=== PATIENT | male | born 1965 | race African-American/Black ===

== ENCOUNTER 2017-11-04 07:16 | Emergency (ER) | payer SELFPAY ==
[2017-11-04 07:31] VITALS: BMI 23.4
[2017-11-04] MEDS ORDERED: COLCHICINE 0.6 MG TABLET (FP) PO ONE ×2 (08:00→10:24)
[2017-11-04] MEDS ORDERED: COLCHICINE 0.6 MG TABLET (FP) ONE ×3 (08:06→10:42)
--- NOTE | 2017-11-04 08:11 | PDOC ---
History of Present Illness - General Chief Complaint: Pain Stated Complaint: FOOT PAIN Time Seen by Provider: 11/04/17 07:35 - History of Present Illness Initial Comments: 11/04/17 08:02 52 year old male with a pmh of CHF (s/p defibrillator placement), atrial fibrillation on eliquis, gout, HTN, HLD, presents for several hour hx of severe left knee pain that began when he was taking his child to school this morning. He says the pain is located on the posterior aspect of his left knee, that it is 10/10 in severity and is unable to extend his left knee without severe pain. He reports that he initially began feeling slight pain last night, for which he took 1 dose of 10mg Prednisone prescribed to him, which did not alleviate the pain. He also tried tylenol, which did not improve his pain. He denies any fevers or chills, swelling or erythema of the left leg or knee. He has seen a cashier [facility] who diagnosed him with gout around 1 year ago. Since then, he reports having 2 gouty attacks in the affected knee. Denies chest pain, SOB, nausea, vomiting, diarrhea. PCP: Dr. [facility] Floor Representative: Dr. Bill[facility] Allergies: NKDA Smoking: Former as a child Alcohol: none Surgeries: defibrillator placement Past History - Past Medical History Allergies/Adverse Reactions: Allergies Allergy/AdvReac Type Severity Reaction Status Date / Time No Known Allergies Allergy Verified 11/04/17 07:19 Home Medications: Ambulatory Orders Apixaban [Eliquis] 5 mg PO BID 11/04/17 Aspirin [ASA -] 81 mg PO DAILY 11/04/17 Furosemide [Lasix] 40 mg PO DAILY 11/04/17 Lisinopril [Prinivil -] 40 mg PO DAILY 11/04/17 Metoprolol Tartrate 100 mg PO BID 11/04/17 Nifedipine ER [Procardia XL -] 30 mg PO DAILY 11/04/17 Prednisone 30 mg PO DAILY 11/04/17 Prednisone [Deltasone] 20 mg PO DAILY #15 tablet 11/04/17 Simvastatin 40 mg PO HS 11/04/17 Cardiac Disorders: Yes (abnormal heart beat) COPD: No DVT: Yes HTN: Yes Hypercholesterolemia: Yes Other medical history: gout, arithritis - Surgical History Cardiac Surgery: Yes (AICD) - Suicide/Smoking/Psychosocial Hx Smoking History: Never smoked Information on smoking cessation initiated: No Hx Alcohol Use: No Drug/Substance Use Hx: No Substance Use Type: None Review of Systems - Review of Systems Able to Perform ROS?: Yes Constitutional: No: Fever Respiratory: No: Shortness of Breath, Wheezing Cardiac (ROS): No: Chest Pain ABD/GI: No: Diarrhea, Nausea, Vomiting Musculoskeletal: Yes: Gout. No: Joint Swelling *Physical Exam - Vital Signs Last Vital Signs Temp Pulse Resp BP Pulse Ox 98.3 F 100 H 18 153/99 100 11/04/17 07:21 11/04/17 07:21 11/04/17 07:21 11/04/17 07:21 11/04/17 07:21 - Physical Exam Comments: 11/04/17 08:12 GENERAL: A&Ox3, no acute distress EYES: EOMI, L eye cloudy ENT: Moist mucus membranes NECK: No JVD LUNGS: CTA, no wheezes HEART: irregularly irregular rate, no murmurs ABDOMEN: Soft, nontender, BS present MUSCULOSKELETAL: No CVA Tenderness EXTREMITIES: 2+ pulses, no edema, L knee restricted ROM due to pain. Pain on palpation of the posterior aspect of L knee. No swelling or erythema noted. NEUROLOGICAL: Cranial nerves II-XII intact. ED Treatment Course - LABORATORY CBC & Chemistry Diagram: 11/04/17 08:04 11/04/17 08:00 Medical Decision Making - Medical Decision Making 11/04/17 08:13 52 year old male with a pmh of CHF (s/p defibrillator placement), atrial fibrillation on eliquis, gout, HTN, HLD presents to the hospital with acute L sided knee pain suspect for gout attack given hx of previous gouty attacks in same knee Plan -CBC -CMP -given that patient is on anticoagulation (eliquis), will give dose colchicine 1.2mg -will give prednisone 60mg -give percocet -will re-evaluate 11/04/17 08:44 -will additionally evaluate for zuniga cyst rupture with LLE knee US 11/04/17 10:18 -US no evidence of zuniga cyst, no evidence of DVT -patient has clinically improved, is able to extend L leg again -will give another dose colchicine and d/c home with prednisone 60mg QD for 5 days and tramadol/percocet -will refer to Dr. Cooper *DC/Admit/Observation/Transfer Diagnosis at time of Disposition: Gout attack - Discharge Dispostion Disposition: HOME Condition at time of disposition: Improved Decision to Admit order: No - Prescriptions Prescriptions: Prednisone [Deltasone] 20 mg PO DAILY #15 tablet - Referrals Referrals: Daniel Cooper MD [Staff Physician] - 1 week - Patient Instructions Additional Instructions: You were seen in the emergency department for an acute gouty attack. You were given colchicine and prednisone to help with your symptoms. At home, please take prednisone 60mg once a day for five tablets (three of the 20mg tablets once a day). We will also give you a few days of pain medication to take at home. Please make an appointment with Dr. Cooper, the Substation Operator Helper at [facility], within 1 week of discharge If you experience any further symptoms, please return to the emergency room immediately - Post Discharge Activity
[2017-11-04 08:17] LABS: HEMOGLOBIN 13.6 GM/dL (11.7-16.9); MCH 31.7 pg (25.7-33.7); MCHC 34.1 g/dl (32.0-35.9); MEAN CELL VOLUME 92.9 fl (80-96); MEAN PLT VOLUME 7.8 fl (7.5-11.1); PLATELET COUNT 265 K/MM3 (134-434); WHITE BLOOD COUNT 9.1 K/mm3 (4.0-10.0)
[2017-11-04] MEDS ORDERED: predniSONE 20 MG TABLET (UD) PO ONE (08:18)
[2017-11-04] MEDS ORDERED: predniSONE 20 MG TABLET (UD) ONE (08:20)
--- NOTE | 2017-11-04 08:46 | PDOC ---
Attending Attestation - Resident Resident Name: AriannaRon - ED Attending Attestation I have performed the following: I have examined & evaluated the patient, The case was reviewed & discussed with the resident, I agree w/resident's findings & plan - HPI HPI: 11/04/17 08:43 52-year-old male with history of atrial fibrillation on Eliquis, history of gout presents with gradual onset and progressive progressive left popliteal pain over the last 1-2 days. No injuries, no radiating pain, no swelling or redness or fevers or chills. Pain is similar in quality to his gout pain, but localized posteriorly to the popliteal region, typically it is more medial/ lateral. Worsened with left knee extension, no other motor or sensory deficit. He took 10 mg of prednisone at home without relief, presents for evaluation. Never required fluid drainage or any surgical intervention. Compliant with his Eliquis. - Physicial Exam PE: 11/04/17 08:45 Afebrile. Heart rate 90 and irregular lying in stretcher Left knee: Subtle knee effusion, otherwise landmarks are intact. Cool to touch without any warm erythema, good range of motion though slightly limited by pain , tenderness is very localized to the popliteal region without palpable mass or induration. No calf tenderness, no leg edema, neurovascularly intact distally - Medical Decision Making 11/04/17 08:46 52-year-old male with left popliteal pain over the last 1-2 days, history of gout. Question gout versus Haney's cyst inflammation/rupture, no evidence for septic joint or vascular process. Labs sent Pain control, anti-inflammatories Ultrasound to assess for Haney's cyst Reassess and disposition accordingly 11/04/17 10:23 markedly improved. imaging negative for dvt or haney's cyst. now able to fully extend the knee and ambulate. will dose second colchicine, d/c on steroids and pain meds, rheum f/u, understands return criteria.
[2017-11-04 09:38] LABS: ALBUMIN 3.7 g/dl (3.4-5.0); ANION GAP 9 (8-16); BLOOD UREA NITROGEN 14 mg/dL (7-18); CHLORIDE 105 mmol/L (98-107); CO2 26 mmol/L (21-32); CREATININE 1.1 mg/dL (0.7-1.3); GLUCOSE,RANDOM 104 mg/dL (74-106); POTASSIUM 3.8 mmol/L (3.5-5.1); SGOT/AST 18 U/L (15-37); SGPT/ALT 20 U/L (12-78); SODIUM 140 mmol/L (136-145)
[2017-11-04 09:40] LABS: ALK PHOS 68 U/L (45-117); BILIRUBIN,TOTAL 0.7 mg/dL (0.2-1.0); TOT PROT 7.8 g/dl (6.4-8.2)
[2017-11-04 10:54] VITALS: BP 142/75; PULSE 81; TEMP 98.2
== END 2017-11-04 10:55 | disposition home or self-care (01) ==
LOC: JER 07:16
DX: M10.9 Gout, unspecified (principal); I50.9 Heart failure, unspecified; Z95.810 Presence of automatic (implantable) cardiac defibrillator
CPT/HCPCS: 36415; 80053; 85027; 93971-TC; 99282-25

== ENCOUNTER 2018-05-28 17:48 | Emergency (ER) | payer OTHER ==
[2018-05-28 18:15] VITALS: BP 145/98; PULSE 106; TEMP 97.5; BMI 33.7
[2018-05-28] MEDS ORDERED: COLCHICINE 0.6 MG TABLET (FP) PO ONE (19:18)
[2018-05-28] MEDS ORDERED: predniSONE 20 MG TABLET (UD) PO ONE (19:23)
[2018-05-28] MEDS ORDERED: predniSONE 20 MG TABLET (UD) ONE (19:26)
--- NOTE | 2018-05-28 19:34 | PDOC ---
History of Present Illness - General Chief Complaint: Pain Stated Complaint: RIGHT FOOT PAIN Time Seen by Provider: 05/28/18 19:02 History Source: Patient Exam Limitations: Clinical Condition - History of Present Illness Initial Comments: 05/28/18 19:29 Patient with past medical history of CHF on ICD, gout arthritis, hyperlipidemia and irregular heartbeat present with complaint of right knee pain and swelling which he believed from gout flareup. Patient reported he is usually given colchicine and prednisone when he has a gout flareup which improved his symptoms. Patient reported increased pain with ambulation to right knee. Patient denies any other symptoms. Timing/Duration: other (3 days) Past History - Past Medical History Allergies/Adverse Reactions: Allergies Allergy/AdvReac Type Severity Reaction Status Date / Time No Known Allergies Allergy Verified 05/28/18 18:10 Home Medications: Ambulatory Orders Apixaban [Eliquis] 5 mg PO BID 11/04/17 Aspirin [ASA -] 81 mg PO DAILY 11/04/17 Furosemide [Lasix] 40 mg PO DAILY 11/04/17 Lisinopril [Prinivil -] 40 mg PO DAILY 11/04/17 Metoprolol Tartrate 100 mg PO BID 11/04/17 Nifedipine ER [Procardia XL -] 30 mg PO DAILY 11/04/17 Oxycodone HCl/Acetaminophen [Percocet 5-325 mg Tablet] 1 - 2 tab PO Q6H PRN #20 tab MDD 8 tabs 11/04/17 Prednisone 30 mg PO DAILY 11/04/17 Prednisone [Deltasone] 20 mg PO DAILY #15 tablet 11/04/17 Simvastatin 40 mg PO HS 11/04/17 Colchicine 0.6 mg PO ONCE #4 tablet 05/28/18 Prednisone 10 mg PO DAILY #4 tablet 05/28/18 Cardiac Disorders: Yes (abnormal heart beat) COPD: No DVT: No HTN: Yes Hypercholesterolemia: Yes Other medical history: GOUT - Surgical History Cardiac Surgery: Yes (AICD) - Immunization History Immunization Up to Date: Yes - Suicide/Smoking/Psychosocial Hx Smoking History: Never smoked Hx Alcohol Use: No Drug/Substance Use Hx: No Substance Use Type: None Review of Systems - Review of Systems Able to Perform ROS?: Yes Is the patient limited Turkmen proficient: No Constitutional: No: Weakness HEENTM: No: Recent change in vision, Double Vision Respiratory: No: See HPI, Cough Cardiac (ROS): No: Symptoms Reported, See HPI, Chest Pain, Edema, Irregular Heart Rate, Lightheadedness, Palpitations, Syncope, Chest Tightness, Other ABD/GI: No: Nausea, Vomiting Musculoskeletal: Yes: Joint Pain (right knee pain), Joint Swelling (right knee) , Muscle Pain (right knee) Neurological: No: Tingling, Weakness, Dizziness All Other Systems: Reviewed and Negative *Physical Exam - Vital Signs Last Vital Signs Temp Pulse Resp BP Pulse Ox 97.5 F L 106 H 17 145/98 96 05/28/18 18:11 05/28/18 18:11 05/28/18 18:11 05/28/18 18:11 05/28/18 18:11 - Physical Exam Comments: 05/28/18 19:32 GENERAL: Well developed, well nourished. Awake and alert. No acute distress. CARDIOVASCULAR: Regular rate and rhythm. No murmurs, rubs, or gallops. PULMONARY: No evidence of respiratory distress. Lungs clear to auscultation bilaterally. No wheezing, rales or rhonchi. ABDOMINAL: Soft. Non-tender. Non-distended. No rebound or guarding. No organomegaly. Normoactive bowel sounds MUSCULOSKELETAL : mild tenderness over medial and lateral collateral ligamen. mild swelling to anterior patella .No bony deformities EXTREMITIES: No cyanosis. No clubbing. mild anterior patella swelling. No calf tenderness. SKIN: Warm and dry. Normal capillary refill. No rashes. No jaundice. NEUROLOGICAL: Alert, awake, appropriate. No motor deficits in the lower extremities. PSYCHIATRIC: Cooperative. Good eye contact. Appropriate mood and affect. General Appearance: Yes: Nourished, Appropriately Dressed, Mild Distress Moderate Sedation - Procedure Monitoring Vital Signs: Procedure Monitoring Vital Signs Temperature 97.5 F L 05/28/18 18:11 Pulse Rate 106 H 05/28/18 18:11 Respiratory Rate 17 05/28/18 18:11 Blood Pressure 145/98 05/28/18 18:11 O2 Sat by Pulse Oximetry (%) 96 05/28/18 18:11 ED Treatment Course - RADIOLOGY Radiology Studies Ordered: Category Date Time Status KNEE 3 POS-RIGHT [RAD] Stat Radiology 05/28/18 19:18 Ordered - Medications Given in the ED: ED Medications Discontinued Medications Generic Name Dose Route Start Last Admin Trade Name Freq PRN Reason Stop Dose Admin Colchicine 0.6 mg 05/28/18 19:18 05/28/18 19:29 Colcrys - PO 05/28/18 19:19 Not Given ONCE ONE Oxycodone/Acetaminophen 1 combo 05/28/18 19:16 05/28/18 19:25 Percocet 5/325 - PO 05/28/18 19:17 1 combo ONCE ONE Administration Prednisone 40 mg 05/28/18 19:23 05/28/18 19:28 Deltasone - PO 05/28/18 19:24 40 mg ONCE ONE Administration Medical Decision Making - Medical Decision Making 05/28/18 19:34 Patient with history of multiple comorbidities present with complaint of right knee pain and swelling which he believes from gout flareup. Exam significant for mild anterior patellar swelling of right knee with mild tenderness over medial lateral collateral ligaments. Percocet 1 tab 5/325 mg given for pain. Prednisone 40 mg by mouth given for swelling and possible gout flareup. X-ray of right knee ordered. Treat based on imaging results. 05/28/18 20:02 X-ray of right knee shows no acute pathology except mild joint effusion. Patient is stable for discharge on colchicine and low-dose prednisone with rheumatology follow-up. Right knee wrapped with Med bandage. *DC/Admit/Observation/Transfer Diagnosis at time of Disposition: Gout attack Qualifiers: Gout site: knee Gout etiology: unspecified cause Laterality: right Qualified Code(s): M10.9 - Gout, unspecified - Discharge Dispostion Disposition: HOME Condition at time of disposition: Stable Decision to Admit order: No - Prescriptions Prescriptions: Colchicine 0.6 mg PO ONCE #4 tablet Prednisone 10 mg PO DAILY #4 tablet - Referrals Referrals: Daniel Cooper MD [Staff Physician] - - Patient Instructions Printed Discharge Instructions: Gout, DI for Gout Additional Instructions: Take medication as prescribed. Follow-up referred to rheumatology as soon as possible for gout arthritis. Your x-ray shows no fracture or arthritis of knee. - Post Discharge Activity
== END 2018-05-28 20:05 | disposition home or self-care (01) ==
LOC: JERFT 17:48
DX: M10.9 Gout, unspecified (principal); I11.0 Hypertensive heart disease with heart failure; I50.9 Heart failure, unspecified; E78.00 Pure hypercholesterolemia, unspecified; I49.9 Cardiac arrhythmia, unspecified; Z79.01 Long term (current) use of anticoagulants
CPT/HCPCS: 73562-TC-RT-FY; 99281-25

== ENCOUNTER 2018-06-04 09:28 | Emergency (ER) | payer OTHER ==
[2018-06-04 09:40] VITALS: BP 160/82; PULSE 62; BMI 33.7
--- NOTE | 2018-06-04 10:13 | PDOC ---
History of Present Illness - General Chief Complaint: Pain, Acute Stated Complaint: REVISIT, FOOT PAIN Time Seen by Provider: 06/04/18 09:59 History Source: Patient Exam Limitations: No Limitations - History of Present Illness Initial Comments: 06/04/18 10:32 Patient here, return visit multiple occasions for re-exacerbation of gout. The patient has gout flares frequently and uses colchicine and prednisone with some symptomatic relief. Sees a seafood technology specialist at [facility] in his next appointment is June 24, which took months to obtain. Patient states his gout attacks come with unknown cause as he has changed his diet, avoid fish and shellfish, does not drink alcohol, does not use caffeine or chocolate, and has had no changes in activity or exercise. Moist fever, denies any redness or swelling. Gout flares occur to his right knee, right great toe, right hand. Today's flare is manifested primarily in his knee. Has used [id number] creams, therapeutic treatments with minimal resolved. Patient has an extensive medical history which includes Plavix and Elliquis treatments. Occurred: reports: yesterday Severity: reports: mild, moderate Pain Location: reports: lower extremity (left knee) Modifying Factors: improves with: cold therapy, pain medication Associated Symptoms (Fall): denies symptoms Past History - Travel Traveled outside of the country in the last 30 days: No Close contact w/someone who was outside of country & ill: No - Past Medical History Allergies/Adverse Reactions: Allergies Allergy/AdvReac Type Severity Reaction Status Date / Time No Known Allergies Allergy Verified 06/04/18 09:39 Home Medications: Ambulatory Orders Apixaban [Eliquis] 5 mg PO BID 11/04/17 Aspirin [ASA -] 81 mg PO DAILY 11/04/17 Furosemide [Lasix] 40 mg PO DAILY 11/04/17 Lisinopril [Prinivil -] 40 mg PO DAILY 11/04/17 Metoprolol Tartrate 100 mg PO BID 11/04/17 Nifedipine ER [Procardia XL -] 30 mg PO DAILY 11/04/17 Oxycodone HCl/Acetaminophen [Percocet 5-325 mg Tablet] 1 - 2 tab PO Q6H PRN #20 tab MDD 8 tabs 11/04/17 Prednisone 30 mg PO DAILY 11/04/17 Prednisone [Deltasone] 20 mg PO DAILY #15 tablet 11/04/17 Simvastatin 40 mg PO HS 11/04/17 Colchicine 0.6 mg PO ONCE #4 tablet 05/28/18 Prednisone 10 mg PO DAILY #4 tablet 05/28/18 Colchicine [Colcrys -] 0.3 mg PO QID #90 tablet 06/04/18 predniSONE [Deltasone -] 20 mg PO BID #10 tablet 06/04/18 Cardiac Disorders: Yes (abnormal heart beat) COPD: No DVT: No HTN: Yes Hypercholesterolemia: Yes - Surgical History Cardiac Surgery: Yes (AICD) - Immunization History Immunization Up to Date: Yes - Suicide/Smoking/Psychosocial Hx Smoking History: Never smoked Hx Alcohol Use: No Drug/Substance Use Hx: No Substance Use Type: None Review of Systems - Review of Systems Able to Perform ROS?: Yes Is the patient limited Turkmen proficient: Yes Constitutional: Yes: Symptoms Reported, See HPI, Loss of Appetite. No: Fever, Malaise HEENTM: No: Symptoms Reported Musculoskeletal: Yes: Symptoms Reported, See HPI, Joint Pain, Joint Swelling ( mild swelling) Integumentary: Yes: See HPI. No: Symptoms Reported, Bruising, Erythema Neurological: No: Symptoms reported All Other Systems: Reviewed and Negative *Physical Exam - Vital Signs Last Vital Signs Temp Pulse Resp BP Pulse Ox 62 16 160/82 98 06/04/18 09:37 06/04/18 09:37 06/04/18 09:37 06/04/18 09:37 - Physical Exam General Appearance: Yes: Nourished, Appropriately Dressed, Apparent Distress, Mild Distress (walks with a limp and uses cane) HEENT: positive: [place], Normal ENT Inspection, TMs Normal, Pharynx Normal Neck: positive: Supple. negative: Tender Respiratory/Chest: positive: Lungs Clear, Normal Breath Sounds Musculoskeletal: positive: Decreased Range of Motion. negative: Normal Inspection Extremity: positive: Normal Capillary Refill, Swelling. negative: Normal Inspection, Normal Range of Motion (swelling, and arthritic changes noted to knee joints bilaterally. However no erythema or no evidence of septic joint. Range of motion is limited secondary to pain primarily on the medial aspect. Has no crepitus or step-offs, and no true ballottement.. Neurovascular intact distal to knee joint.) Integumentary: positive: Dry, Warm, Pale. negative: Erythema Neurologic: positive: gameplay programmer II-XII NML intact, Fully Oriented, Alert, Normal Mood/ Affect, Normal Response, Motor Strength 5/5 Moderate Sedation - Procedure Monitoring Vital Signs: Procedure Monitoring Vital Signs Temperature Pulse Rate 62 06/04/18 09:37 Respiratory Rate 16 06/04/18 09:37 Blood Pressure 160/82 06/04/18 09:37 O2 Sat by Pulse Oximetry (%) 98 06/04/18 09:37 Progress Note - Progress Note Progress Note: Gout re-exacerbation, will treat with colchicine and prednisone as patient states this is his best treatment modality. Given enough colchicine to last until June 24 appointment *DC/Admit/Observation/Transfer Diagnosis at time of Disposition: Gout attack Qualifiers: Gout site: knee Gout etiology: unspecified cause Laterality: left Qualified Code(s): M10.9 - Gout, unspecified - Discharge Dispostion Disposition: HOME Condition at time of disposition: Stable Decision to Admit order: No - Prescriptions Prescriptions: Colchicine [Colcrys -] 0.3 mg PO QID #90 tablet predniSONE [Deltasone -] 20 mg PO BID #10 tablet - Referrals - Patient Instructions Printed Discharge Instructions: DI for Gout Additional Instructions: Rest, ice to area on and off for 15 minutes 4-6 times a day Avoid heavy lifting or exercise until pain and swelling is resolved or until further directed Keep area highly elevated to reduce swelling Use splints/Med wrap as directed Followup with orthopedist in one to 2 days if not improving, if significantly improved may wait one week for followup with orthopedist May use Tylenol 23 25 mg tablets every 4 hours as needed for pain Prednisone 40 mg daily for the next 5 days colchicine as directed for gout pain - Post Discharge Activity Forms/Work/School Notes: Back to Work
== END 2018-06-04 10:45 | disposition home or self-care (01) ==
LOC: JERFT 09:28
DX: M10.9 Gout, unspecified (principal); I10 Essential (primary) hypertension; E78.00 Pure hypercholesterolemia, unspecified; Z79.82 Long term (current) use of aspirin
CPT/HCPCS: 99281-25

== ENCOUNTER 2019-06-26 19:46 | Emergency (ER) | payer OTHER ==
[2019-06-26 20:05] VITALS: BP 137/84; PULSE 80; TEMP 98.4; BMI 36.6
--- NOTE | 2019-06-26 20:39 | PDOC ---
History of Present Illness - General Chief Complaint: Edema Stated Complaint: LT FOOT PAIN Time Seen by Provider: 06/26/19 20:38 History Source: Patient Exam Limitations: No Limitations - History of Present Illness Initial Comments: 06/26/19 20:45 54yM w PMHx CHF (s/p defib placement), A-fib on eliquis, gout, HTN, HLD presenting w 1 week L knee swelling and mild lateral joint pain. Taking prednisone without significant relief. Denies knee trauma, fevers. Still able to ambulate. Went to [facility] urgent clinic today, XR showed knee effusion, told to go to ED to have it drained. Last seen on 06/04/18 for L knee pain/swelling d/ t gout flareup, says colchicine and prednisone works best for gout. Past History - Past Medical History Allergies/Adverse Reactions: Allergies Allergy/AdvReac Type Severity Reaction Status Date / Time No Known Allergies Allergy Verified 06/04/18 09:39 Home Medications: Ambulatory Orders Apixaban [Eliquis] 5 mg PO BID 11/04/17 Aspirin [ASA -] 81 mg PO DAILY 11/04/17 Furosemide [Lasix] 40 mg PO DAILY 11/04/17 Lisinopril [Prinivil -] 40 mg PO DAILY 11/04/17 Metoprolol Tartrate 100 mg PO BID 11/04/17 Nifedipine ER [Procardia XL -] 30 mg PO DAILY 11/04/17 Oxycodone HCl/Acetaminophen [Percocet 5-325 mg Tablet] 1 - 2 tab PO Q6H PRN #20 tab MDD 8 tabs 11/04/17 Prednisone 30 mg PO DAILY 11/04/17 Simvastatin 40 mg PO HS 11/04/17 predniSONE [Deltasone] 20 mg PO DAILY #15 tablet 11/04/17 Colchicine 0.6 mg PO ONCE #4 tablet 05/28/18 Prednisone 10 mg PO DAILY #4 tablet 05/28/18 Colchicine [Colcrys] 0.3 mg PO QID #90 tablet 06/04/18 predniSONE [Deltasone -] 20 mg PO BID #10 tablet 06/04/18 Colchicine 0.6 mg PO DAILY #30 capsule 06/26/19 Lidocaine 5% Patch [Lidoderm Patch -] 1 patch TP DAILY #30 patch 06/26/19 predniSONE [Deltasone -] 40 mg PO DAILY #10 tablet 06/26/19 Cardiac Disorders: Yes (abnormal heart beat) COPD: No DVT: No HTN: Yes Hypercholesterolemia: Yes - Surgical History Cardiac Surgery: Yes (AICD) - Immunization History Immunization Up to Date: Yes - Psycho Social/Smoking Cessation Hx Smoking History: Never smoked Hx Alcohol Use: No Drug/Substance Use Hx: No Substance Use Type: None Review of Systems - Review of Systems Constitutional: No: Chills, Fever HEENTM: No: Eye Pain, Nose Pain, Throat Pain Respiratory: No: Cough, Shortness of Breath Cardiac (ROS): No: Chest Pain, Palpitations ABD/GI: No: Abdominal Distended, Constipated, Diarrhea, Nausea, Vomiting : No: Burning, Dysuria Musculoskeletal: Yes: Joint Pain. No: Back Pain Integumentary: No: Bruising, Flushing, Lesions Neurological: No: Headache, Numbness Psychiatric: No: Anxiety, Depression Endocrine: No: Excessive Sweating, Intolerance to Cold, Intolerance to Heat Hematologic/Lymphatic: No: Anemia, Blood Clots *Physical Exam - Vital Signs Last Vital Signs Temp Pulse Resp BP Pulse Ox 98.4 F 80 19 137/84 98 06/26/19 20:00 06/26/19 20:00 06/26/19 20:00 06/26/19 20:00 06/26/19 20:00 - Physical Exam General Appearance: Yes: Nourished, Appropriately Dressed, Mild Distress HEENT: positive: EOMI, SARAVANAN, Normal Voice, Hearing Grossly Normal Respiratory/Chest: positive: Lungs Clear, Normal Breath Sounds. negative: Chest Tender, Respiratory Distress, Crackles, Rales, Rhonchi, Stridor, Wheezing Cardiovascular: positive: Regular Rhythm, Regular Rate, S1, S2. negative: Murmur Vascular Pulses: Dorsalis-Pedis (R): 2+, Doralis-Pedis (L): 2+ Extremity: positive: Other (L knee moderate diffuse effusion, minimal lateral joint tenderness, not erythematous/warm, extensor mechanism intact, full ROM, jayy lower extremity 5/5 strength, no numbness) Integumentary: positive: Normal Color Neurologic: positive: decal maker II-XII NML intact, Fully Oriented, Alert, Normal Response, Motor Strength 5/5, Responsive. negative: Sensory Deficit, Confused, Disoriented Medical Decision Making - Medical Decision Making 06/26/19 21:06 54yM w PMHx CHF (s/p defib placement), A-fib on eliquis, gout, HTN, HLD presenting w 1 week L knee swelling and mild lateral joint pain d/t gout. No fracture/dislocation seen on L knee XR. Given colchicine, predisone, liododerm patch DC home w colchicine, prednisone, liododerm patch, knee immobilizer, ortho referral - pending duplex US r/o DVT Signed out to night team Discharge - Discharge Information Problems reviewed: Yes Clinical Impression/Diagnosis: Gout attack Qualifiers: Gout site: knee Gout etiology: unspecified cause Laterality: left Qualified Code(s): M10.9 - Gout, unspecified Condition: Good Disposition: HOME - Admission No - Additional Discharge Information Prescriptions: Colchicine 0.6 mg PO DAILY #30 capsule Lidocaine 5% Patch [Lidoderm Patch -] 1 patch TP DAILY #30 patch predniSONE [Deltasone -] 40 mg PO DAILY #10 tablet - Follow up/Referral Referrals: Danie Childs DO [Staff Physician] - - Patient Discharge Instructions Patient Printed Discharge Instructions: DI for Gout Additional Instructions: Take the prescribed medication as directed Follow up with your primary care doctor or referred orthopedic doctor. - Post Discharge Activity
[2019-06-26] MEDS ORDERED: predniSONE 20 MG TABLET (UD) PO ONE (21:01)
[2019-06-26] MEDS ORDERED: COLCHICINE 0.6 MG CAP PO ONE ×2 (21:01→22:57)
[2019-06-26] MEDS ORDERED: predniSONE 20 MG TABLET (UD) ONE (21:05)
[2019-06-26] MEDS ORDERED: COLCHICINE 0.6 MG CAP ONE ×2 (21:05→23:12)
[2019-06-26] MEDS ORDERED: LIDOCAINE PATCH REMOVAL MC SCH (22:00)
--- NOTE | 2019-06-26 22:21 | PDOC ---
Attending Attestation - Resident Resident Name: Jc James - ED Attending Attestation I have performed the following: I have examined & evaluated the patient, The case was reviewed & discussed with the resident, I agree w/resident's findings & plan - HPI HPI: 06/26/19 22:47 Pt comes with swollen left knee, calf, and foot. He states that he has gout Pt hasn't had his colchicine in a while. He cannot take allopurinol or indocin as he takes eliquis. Pt controls his diet, but admits he eats a lot of chicken. Pt doesn't drink or smoke. He doesn't work, and spends time with his kids. He has had no recent travel. tells me that he has been in alot of pain and that he is unable to sleep well. No fevers and no chills. He takes only tylenol for the pain which is suboptimal - Physicial Exam PE: 06/26/19 23:04 Heart and lungs normal Afebrile VSS abd soft NT ND Pt has swelling of the left knee; no redness, FROM; +ballotment of patella bilaterally +calf swelling and ankle swelling on the left - Medical Decision Making 06/26/19 23:06 Pt had all his blood tests at his clinic last week. He will follow for his lab test results. Pt will get sono for DVT done, despite the fact that he is on eliquis. Pt will be treated with pain meds here Knee immobilizer for comfort. 06/27/19 00:24 Patient Name: MYA ANDRADE THIS IS A PRELIMINARY REPORT FROM [facility] EXAM: Left lower extremity venous duplex ultrasound IMAGES: 21 DATE OF EXAM: 2019-06-26 22:57:34 REASON FOR EXAM: Rule out DVT COMPARISON: None. FINDINGS: No evidence for deep venous thrombosis. No Haney's cyst. 06/27/19 00:24 Pt was loaded with colchicine and he will be sent home with the same.
[2019-06-26] MEDS ORDERED: LIDOCAINE 5% TOPICAL PATCH TP ONE (22:55)
[2019-06-26] MEDS ORDERED: LIDOCAINE 5% TOPICAL PATCH ONE (23:13)
[2019-06-27] MEDS ORDERED: COLCHICINE 0.6 MG CAP PO ONE (00:22)
[2019-06-27] MEDS ORDERED: COLCHICINE 0.6 MG CAP ONE (00:27)
== END 2019-06-27 00:33 | disposition home or self-care (01) ==
LOC: JER 19:46
DX: M10.9 Gout, unspecified (principal); I11.0 Hypertensive heart disease with heart failure; I50.9 Heart failure, unspecified; I48.91 Unspecified atrial fibrillation; Z79.01 Long term (current) use of anticoagulants; E78.5 Hyperlipidemia, unspecified; Z95.810 Presence of automatic (implantable) cardiac defibrillator
CPT/HCPCS: 73562-TC-LT-FY; 93971-TC; 99282-25